=== PATIENT | male | born 1965 | race Caucasian/White ===

== ENCOUNTER 2016-11-29 09:02 | Day surgery (SDC) | payer OTHER ==
[~2016-11-29 09:02] MED LIST: IV START KIT ONE; LACTATED RINGERS 1,000 ML ONE
[2016-11-29] MEDS ORDERED: LACTATED RINGERS 1,000 ML IV SCH (09:15)
[2016-11-29] MEDS ORDERED: PROPOFOL 40 ML IV ONE (09:38)
== END 2016-11-29 10:25 | disposition home or self-care (01) ==
LOC: SDC 09:02
PROVIDERS: ATTEND Internal Medicine Gastroenterology
PROC: 0DJD8ZZ Inspection of Lower Intestinal Tract, Via Natural or Artificial Opening Endoscopic (ICD-10-PCS; principal; 2016-11-29)
DX: Z12.11 Encounter for screening for malignant neoplasm of colon (principal)
CPT/HCPCS: 45378; J7120